=== PATIENT | male | born 1990 | race Two or more races ===

== ENCOUNTER → 2019-03-26 | Outpatient (REF) | payer OTHER ==
[2019-03-26 18:19] LABS: BASO # 0.1 10^3/uL (0.0-0.2); BASO % 1.3 % (0.0-1.0); EOS # 0.5 10^3/uL (0.0-0.5); EOS % 6.8 % (0.0-3.0); HEMATOCRIT 46.3 % (42.0-52.0); HEMOGLOBIN 15.4 g/dl (13.5-17.5); LYMPH # 2.2 10^3/uL (1.5-5.0); LYMPH % 31.5 % (24.0-44.0); MEAN CORPUSCULAR HEMOGLOBIN 30.4 pg (27.0-33.0); MEAN CORPUSCULAR HGB CONC 33.3 g/dl (32.0-36.5); MEAN CORPUSCULAR VOLUME 91.5 fl (80.0-96.0); MONO # 0.6 10^3/uL (0.0-0.8); MONO % 8.3 % (0.0-5.0); NEUTROPHILS # 3.6 10^3/uL (1.5-8.5); PLATELET COUNT, AUTOMATED 261 10^3/uL (150-450); RED BLOOD COUNT 5.06 10^6/uL (4.30-6.10)
[2019-03-26 18:27] LABS: ALBUMIN 4.4 GM/DL (3.2-5.2); ALT/SGPT 50 U/L (12-78); BILIRUBIN,TOTAL 0.7 MG/DL (0.2-1.0); BLOOD UREA NITROGEN 15 MG/DL (7-18); CARBON DIOXIDE LEVEL 28 MEQ/L (21-32); CHLORIDE LEVEL 105 MEQ/L (98-107); CHOLESTEROL LEVEL 155 MG/DL (<200); CHOLESTEROL RISK RATIO 2.627 (<5); CREATININE FOR GFR 0.87 MG/DL (0.70-1.30); FREE T4 1.08 NG/DL (0.76-1.46); GLOMERULAR FILTRATION RATE > 60.0 (>60); GLUCOSE, FASTING 75 MG/DL (70-100); HDL CHOLESTEROL 59 MG/DL (>40); LDL CHOLESTEROL 84 MG/DL (<100); NON-HDL-C 96 MG/DL; SODIUM LEVEL 140 MEQ/L (136-145); TOTAL PROTEIN 7.7 GM/DL (6.4-8.2); TRIGLYCERIDES LEVEL 62 MG/DL (<150)
[2019-03-26 18:48] LABS: HEMOGLOBIN A1c 5.1 %
[2019-03-31 00:06] LABS: D001-IgE D pteronyssinus 2.83 kU/L (Class III); E001-IgE Cat Epith/Dander 3.09 kU/L (Class III); G008-IgE Kentucky Bluegrass 0.58 kU/L (Class II); INSULIN LEVEL 5.8 uIU/mL (2.6-24.9); M001-IgE Penicillium chrysogen < 0.10 kU/L (Class 0); M002 IgE Cladosporium herbaru < 0.10 kU/L (Class 0); M003 IgE Aspergillus fumigatu < 0.10 kU/L (Class 0); M006-IgE Alternaria alternata < 0.10 kU/L (Class 0); T001-IgE Maple/Box Elder 0.15 kU/L (Class 0/I); T003-IgE Common Silver Birch 2.16 kU/L (Class III); T006-IgE Cedar, Mountain 0.11 kU/L (Class 0/I); T008-IgE Elm, American 0.25 kU/L (Class 0/I); T015-IgE Ash, White < 0.10 kU/L (Class 0); T041-IgE Hickory, White 0.67 kU/L (Class II); T070-IgE White Mulberry < 0.10 kU/L (Class 0); W001-IgE Ragweed, Short 1.12 kU/L (Class II); W009-IgE Plantain, English 0.11 kU/L (Class 0/I); W014-IgE Pigweed, Rough 0.23 kU/L (Class 0/I); W018-IgE Sheep Sorrel 0.12 kU/L (Class 0/I)
== END ==
LOC: M SFHCPLAZ 15:55
PROVIDERS: ATTEND Family Medicine
DX: Z83.3 Family history of diabetes mellitus (principal); J30.2 Other seasonal allergic rhinitis

== ENCOUNTER → 2020-03-13 | Outpatient (CLI) | payer SELFPAY | LOC: M LABSMTC 16:44 | PROVIDERS: ATTEND Pediatrics | DX: Z20.828 Contact with and (suspected) exposure to other viral communicable diseases (principal) ==

== ENCOUNTER → 2020-04-16 | Outpatient (CLI) | payer SELFPAY | LOC: M LABSMTC 08:33 | PROVIDERS: ATTEND Pediatrics | DX: Z20.822 Contact with and (suspected) exposure to COVID-19 (principal) ==

== ENCOUNTER → 2020-05-22 | Outpatient (CLI) | payer SELFPAY | LOC: M LABSMTC 09:42 | PROVIDERS: ATTEND Pediatrics | DX: Z20.822 Contact with and (suspected) exposure to COVID-19 (principal) ==

== ENCOUNTER → 2023-05-25 | Outpatient (REF) | payer OTHER ==
[2023-05-25 18:49] LABS: RSV AMPLIFICATION NEGATIVE (NEGATIVE)
== END ==
LOC: M LAB REF 17:16
PROVIDERS: ATTEND Physician Assistant
DX: J06.9 Acute upper respiratory infection, unspecified (principal); Z20.828 Contact with and (suspected) exposure to other viral communicable diseases

== ENCOUNTER → 2024-06-02 | Outpatient (REF) | payer OTHER, BC | LOC: M SMT 13:12 | PROVIDERS: ATTEND Urology | DX: Z30.2 Encounter for sterilization (principal) ==